=== PATIENT | male | born 1965 | race Caucasian/White ===

== ENCOUNTER 2021-07-09 11:56 | Day surgery (SDCO) | payer MEDICARE ==
[~2021-07-09] VITALS: Ht 177.8 cm; Wt 129.8 kg
[2021-07-09 12:38] LABS: BASOPHIL 0.2 % (0-2); EOSINOPHIL 0.4 % (0-5); HCT 41.9 % (42.0-52.0); LYMPHOCYTE 13.2 % (15-48); MCH 31.9 pg (25.0-31.0); MCHC 33.4 g/dL (32.0-36.0); MCV 95.4 fL (78.0-100.0); MPV 11.1 fL (6.0-9.5); NEUTROPHIL 72.6 % (41-80); NRBC 0; PLT 264 K/uL (150-400); RBC 4.39 M/uL (4.70-6.00); RDW 13.2 % (11.5-14.0); WBC 12.1 K/uL (4.0-10.5)
[2021-07-09 13:13] LABS: BILIRUBIN 1+ mg/dL (NEGATIVE); BLOOD TRACE-INTACT Ery/uL (NEGATIVE); CLARITY CLEAR (CLEAR); COLOR YELLOW (YELLOW); GLUCOSE (U) NORMAL (NORMAL); LEUKOCYTES NEGATIVE Leu/uL (NEGATIVE); NITRITE NEGATIVE (NEGATIVE); PROTEIN 2+ mg/dL (NEGATIVE); SPECIFIC GRAVITY 1.025 (1.001-1.030)
[2021-07-09 13:22] LABS: BACTERIA TRACE
[2021-07-09 13:23] LABS: AMORPHOUS URATES CRYSTALS MODERATE
[2021-07-09 13:45] LABS: CREATININE 1.07 mg/dL (0.67-1.17); MAGNESIUM 2.3 mg/dL (1.8-2.4); POTASSIUM 3.9 mmol/L (3.5-5.1)
[2021-07-09 20:25] LABS: C-REACTIVE PROTEIN > 18.00 mg/dL (<=0.90); URIC ACID 8.2 mg/dL (3.5-7.2)
--- NOTE | 2021-07-09 20:51 | NUR ---
TYLENOL 650 MG PO FOR ELEVATED TEMP EFFECTIVE TEMP NOW 99.1
[2021-07-10 06:41] LABS: BASOPHIL 0.4 % (0-2); EOSINOPHIL 1.1 % (0-5); HCT 36.6 % (42.0-52.0); HGB 12.2 g/dl (13.2-18.0); LYMPHOCYTE 12.2 % (15-48); MCH 31.9 pg (25.0-31.0); MCHC 33.3 g/dL (32.0-36.0); MCV 95.6 fL (78.0-100.0); MONOCYTE 12.1 % (0-12); MPV 10.6 fL (6.0-9.5); NEUTROPHIL 73.6 % (41-80); NRBC 0; PLT 208 K/uL (150-400); RBC 3.83 M/uL (4.70-6.00); RDW 13.2 % (11.5-14.0)
[2021-07-10 07:33] LABS: ALBUMIN 2.5 g/dL (3.4-5.0); BILIRUBIN - TOTAL 0.9 mg/dL (0.2-1.0); CREATININE 0.88 mg/dL (0.67-1.17); GLOBULIN (CALCULATION) 4.6 g/dL; POTASSIUM 4.6 mmol/L (3.5-5.1); TOTAL PROTEIN 7.1 g/dL (6.4-8.2)
[2021-07-11 06:28] LABS: BASOPHIL 0.3 % (0-2); EOSINOPHIL 2.8 % (0-5); HCT 34.8 % (42.0-52.0); HGB 11.6 g/dl (13.2-18.0); LYMPHOCYTE 13.3 % (15-48); MCH 31.6 pg (25.0-31.0); MCHC 33.3 g/dL (32.0-36.0); MCV 94.8 fL (78.0-100.0); MONOCYTE 9.9 % (0-12); MPV 10.9 fL (6.0-9.5); NEUTROPHIL 73.4 % (41-80); NRBC 0; PLT 234 K/uL (150-400); RBC 3.67 M/uL (4.70-6.00); WBC 7.9 K/uL (4.0-10.5)
[2021-07-11 07:13] LABS: ALBUMIN 2.3 g/dL (3.4-5.0); BILIRUBIN - TOTAL 0.6 mg/dL (0.2-1.0); BUN/CREAT RATIO (CALC) 18.8 RATIO; CREATININE 0.8 mg/dL (0.67-1.17); GLOBULIN (CALCULATION) 4.6 g/dL; POTASSIUM 3.7 mmol/L (3.5-5.1); TOTAL PROTEIN 6.9 g/dL (6.4-8.2)
--- NOTE | 2021-07-11 14:35 | NUR ---
PT REQUESTS HH FOR PT AND A RW AND 11/20. REQUEST FOR HH SENT TO [facility] AND REQUEST FOR RW AND 11/20 SENT TO [facility]. PT. SIGNED CHOICE FORM.
--- NOTE | 2021-07-11 14:36 | NUR ---
PER ZAHRAA WITH THERAPY PT HAS REQUESTED A PRIMARY PHYSICIAN WITH THE [facility] AT [facility]. SENT REFEERRAL TO [facility] TO SECURE PCP AND APPT.
--- NOTE | 2021-07-11 15:01 | NUR ---
FAIZAN MUSTAFA PT. HAS AN APPT WITH HECTOR HERNANDEZ AT [facility] ON July @ 8:45 A.M. ADVISED PT AND NISA MÉNDEZ OF THIS INFORMATION.
[2021-07-12 05:38] LABS: BASOPHIL 0.1 % (0-2); EOSINOPHIL 0 % (0-5); HCT 40.2 % (42.0-52.0); HGB 13.5 g/dl (13.2-18.0); LYMPHOCYTE 8.5 % (15-48); MCH 31.4 pg (25.0-31.0); MCHC 33.6 g/dL (32.0-36.0); MCV 93.5 fL (78.0-100.0); MONOCYTE 2.3 % (0-12); MPV 10.7 fL (6.0-9.5); NEUTROPHIL 88.8 % (41-80); NRBC 0; PLT 324 K/uL (150-400); RDW 12.7 % (11.5-14.0); WBC 6.9 K/uL (4.0-10.5)
[2021-07-12 05:52] LABS: BUN/CREAT RATIO (CALC) 25.4 RATIO; CREATININE 0.71 mg/dL (0.67-1.17); POTASSIUM 4.3 mmol/L (3.5-5.1); URIC ACID 5.9 mg/dL (3.5-7.2)
[2021-07-12] MEDS ORDERED: MOBIC7.5 MG PO (15:26)
--- NOTE | 2021-07-12 15:30 | NUR ---
PER DR. DIOR PT. WILL D/C HOME THIS DATE. [facility] TO DELIVER A ROLLING WALKER AND 11/20. [facility] WILL PROVIDE PT.
== END 2021-07-12 16:41 | disposition home or self-care (01) ==
LOC: FER 11:56 → FMS 17:19
PROVIDERS: Family Medicine; Internal Medicine; Nurse Practitioner; Nurse Practitioner Family; ADMIT Internal Medicine
DX: M79.89 Other specified soft tissue disorders (principal); R00.0 Tachycardia, unspecified; G62.9 Polyneuropathy, unspecified; I10 Essential (primary) hypertension; M48.00 Spinal stenosis, site unspecified; R53.1 Weakness; F10.10 Alcohol abuse, uncomplicated; K76.0 Fatty (change of) liver, not elsewhere classified; E79.0 Hyperuricemia without signs of inflammatory arthritis and tophaceous disease; E66.9 Obesity, unspecified; Z68.41 Body mass index [BMI] 40.0-44.9, adult; Z79.899 Other long term (current) drug therapy; Z88.0 Allergy status to penicillin; Z88.6 Allergy status to analgesic agent; Z20.822 Contact with and (suspected) exposure to COVID-19
CPT/HCPCS: 36415; 71045; 71275; 73630; 73700; 80048; 80053; 80061; 81001; 82550; 83036; 83605; 83735; 84484; 84550; 85025; 85379; 86038; 86140; 86141; 87040; 93005; 93970; 94010; 97110; 97162; 97166; 97530-GP; 97535; G0378; J1650; J2270; J2920; J7030; Q9967; U0002